=== PATIENT | female | born 1970 | race Caucasian/White ===

== ENCOUNTER 2020-05-10 11:37 | Outpatient (CLI) | payer BC | END 2020-05-10 11:38 | disposition home or self-care (01) | LOC: CSHMAMMO 11:37 | PROVIDERS: ATTEND Family Medicine | DX: Z12.31 Encounter for screening mammogram for malignant neoplasm of breast (principal) | CPT/HCPCS: 77063; 77067 ==

== ENCOUNTER 2021-07-09 22:07 | Emergency (ER) | payer BC ==
[2021-07-09] MEDS ORDERED: Dexamethasone 4 mg/ml Vial ONE (22:52)
== END 2021-07-10 00:09 | disposition home or self-care (01) ==
LOC: CSHERS 22:07
DX: L50.9 Urticaria, unspecified (principal); R00.0 Tachycardia, unspecified
CPT/HCPCS: 93005; 96372; J1100

== ENCOUNTER 2021-09-14 13:37 | Outpatient (CLI) | payer BC | END 2021-09-14 13:38 | disposition home or self-care (01) | LOC: CSHMAMMO 13:37 | PROVIDERS: ATTEND Family Medicine | DX: Z12.31 Encounter for screening mammogram for malignant neoplasm of breast (principal) | CPT/HCPCS: 77063; 77067 ==

== ENCOUNTER 2022-12-12 13:10 | Outpatient (CLI) | payer BC | END 2022-12-12 13:11 | disposition home or self-care (01) | LOC: CSHMAMMO 13:10 | PROVIDERS: ATTEND Obstetrics & Gynecology | DX: Z12.31 Encounter for screening mammogram for malignant neoplasm of breast (principal) | CPT/HCPCS: 77063; 77067 ==